=== PATIENT | female | born 1990 | race Hispanic/Latino ===

== ENCOUNTER 2021-12-31 20:46 | Emergency (ER) | payer MEDICAID ==
[~2021-12-31] VITALS: Ht 170.2 cm; Wt 131.5 kg
[2021-12-31] MEDS ORDERED: ACETAMINOPHEN 500 MG TABLET PO ONE (21:00)
[2021-12-31] MEDS ORDERED: IBUPROFEN 600 MG TABLET PO ONE (21:00)
[2021-12-31 21:23] LABS: HEMATOCRIT 41.6 % (36-48); MEAN CORPUSCULAR HEMOGLOBIN 27.4 pg (27.0-33.0); MEAN CORPUSCULAR HGB CONC 32.9 g/dL (32.0-36.0); MEAN CORPUSCULAR VOLUME 83.2 fL (79-99); PLATELET COUNT (AUTO) 205 K/uL (130-400); RED CELL DISTRIBUTION WIDTH 13.8 % (11.0-15.5); WHITE BLOOD COUNT (AUTO) 4.5 K/uL (4.8-10.8)
[2021-12-31 21:25] LABS: APPEARANCE,URINE Cloudy (CLEAR); BILIRUBIN,URINE Negative (NEGATIVE); COLOR,URINE Yellow (YELLOW); GLUCOSE, URINE (UA) Negative (NEGATIVE); KETONES,URINE Trace mg/dL (NEGATIVE); LEUKOCYTE ESTERASE ,URINE Small (NEGATIVE); NITRATE,URINE Negative (NEGATIVE); OCCULT BLOOD,URINE Negative (NEGATIVE); PH,URINE 5.5 (5.0-8.0); PROTEIN,URINE Negative (NEGATIVE); UROBILINOGEN,URINE 0.2 mg/dL (0.2-1.0)
[2021-12-31 21:32] LABS: POTASSIUM 4.1 mmol/L (3.5-5.1)
[2021-12-31 21:37] LABS: ALBUMIN 3.6 g/dL (3.5-5.0); TOTAL PROTEIN, SERUM 7.9 g/dL (6.0-8.3)
[2021-12-31 21:50] LABS: RBC,URINE 0-1 /HPF (0-1)
[2021-12-31 21:51] LABS: BACTERIA,URINE Few /HPF (None Seen); SQUAMOUS EPITHELIAL CELL,UR Moderate /HPF (0-2)
[2021-12-31 22:05] LABS: BASOPHILS % (AUTO) 0.5 % (0.0-5.0); EOSINOPHILS % (AUTO) 0.5 % (0.0-8.0); LYMPHOCYTES % (AUTO) 9.2 % (21.0-51.0); MONOCYTES % (AUTO) 11.2 % (3.0-13.0); NEUTROPHILS % (AUTO) 78.4 % (40.0-77.0)
[2021-12-31 22:10] VITALS: BP 115/70
[2021-12-31] MEDS ORDERED: 0.9%NACL 1000ML 1,000 ML IV SCH ×2 (22:30→23:10)
[2021-12-31] MEDS ORDERED: NIRM1TAB5 PO (22:37)
[2021-12-31] MEDS ORDERED: ONDA4TAB10 PO (22:37)
[2021-12-31] MEDS ORDERED: IBUP-2070 PO (22:37)
[2021-12-31] MEDS ORDERED: D-ME118S47 PO (22:37)
== END 2021-12-31 22:53 | disposition home or self-care (01) ==
LOC: EDH 20:46
DX: U07.1 COVID-19 (principal); Z79.1 Long term (current) use of non-steroidal anti-inflammatories (NSAID)
CPT/HCPCS: 99283; 87635; 80053; 87804 ×2; 85025; 81001; 36415; C9803